=== PATIENT | female | born 1995 | race African-American/Black ===

== ENCOUNTER 2021-05-24 10:52 | Emergency (ER) | payer SELFPAY ==
[~2021-05-24] VITALS: Ht 152.4 cm; Wt 66.8 kg
[2021-05-24 12:30] LABS: BASO # 0.1 K/mm3 (0.0-0.2); BASO % 0.7 % (0.0-2.0); EOS # 0.1 K/mm3 (0.0-0.7); GRAN # 4.9 K/mm3 (1.4-6.5); GRAN % 71.8 % (42.2-75.2); HEMOGLOBIN 11.7 g/dl (12.5-16.0); LYMPH # 1.4 K/mm3 (1.2-3.4); LYMPH % 21.1 % (20.0-51.0); MEAN CELL VOLUME 87 fl (80.0-100.0); MEAN CORPUSCULAR HEMOGLOBIN 31 pg (27-31); MEAN CORPUSCULAR HGB CONC 36 g/dl (33.0-37.0); MEAN PLATELET VOLUME 10.4 fl (7.4-10.4); MONO # 0.4 K/mm3 (0.1-0.6); MONO % 5.3 % (1.7-9.3); PLATELET COUNT 213 K/mm3 (130-400); RED BLOOD COUNT 3.81 M/mm3 (4.10-5.30)
[2021-05-24 12:56] LABS: ALANINE AMINOTRANSFERASE 7 U/L (0-55); ALBUMIN 3.1 gm/dL (3.5-5.0); ALKALINE PHOSPHATASE 42 U/L (40-150); ANION GAP 12 mmol/L (7-16); AST,SGOT 14 U/L (5-34); BILIRUBIN,TOTAL 0.8 mg/dL (0.2-1.2); BLOOD UREA NITROGEN 10 mg/dL (7-19); CARBON DIOXIDE 17 mmol/L (22-29); CHLORIDE 105 mmol/L (98-107); CREATININE, serum 0.68 mg/dL (0.57-1.11); GLUCOSE 54 mg/dL (70-99); LIPASE < 10 U/L (8-78); POTASSIUM 3.5 mmol/L (3.5-4.5); SODIUM 134 mmol/L (136-145); TOTAL PROTEIN 6.3 gm/dL (6.2-8.1)
[2021-05-24 13:33] LABS: COLLECTION METHOD CLEAN CATCH
[2021-05-24 13:33] LABS: HCG,QUANTITATIVE 37195 mIU/mL
[2021-05-24 13:39] LABS: MUCOUS Present (NOT PRESENT); PH 5 (5-8); SQUAMOUS EPITHELIAL 0-2 /hpf (0-10); URINE APPEARANCE Hazy (CLEAR/HAZY); URINE BACTERIA Rare /hpf (NONE SEEN); URINE BILIRUBIN Negative (NEGATIVE); URINE BLOOD Negative (NEGATIVE); URINE COLOR Yellow (YELLOW); URINE GLUCOSE Negative (NEGATIVE); URINE KETONE 2+ (NEGATIVE); URINE LEUKOCYTE ESTERASE Trace (NEGATIVE); URINE NITRATE Negative (NEGATIVE); URINE PROTEIN(semi-quant) 1+ (NEGATIVE); URINE RBC 0-2 /hpf (0-2); URINE UROBILINOGEN Negative (NEGATIVE)
[2021-05-24 13:50] VITALS: BP 120/62; PULSE 78; TEMP 98
== END 2021-05-24 13:52 | disposition home or self-care (01) ==
LOC: COL.ER 10:52
PROVIDERS: Family Medicine; Nurse Practitioner
DX: O21.9 Vomiting of pregnancy, unspecified (principal); Z3A.17 17 weeks gestation of pregnancy
CPT/HCPCS: J2550; J7030

== ENCOUNTER 2021-06-13 15:48 | Inpatient (IN) | payer MEDICAID ==
[2021-06-13] VITALS (14 sets, daily range): BP systolic 109–138; BP diastolic 58–81; PULSE 67–881; TEMP 98.1
[~2021-06-13] VITALS: Ht 152.4 cm; Wt 68.2 kg
[2021-06-13 17:51] LABS: BASO # 0.1 K/mm3 (0.0-0.2); BASO % 0.5 % (0.0-2.0); EOS # 0.2 K/mm3 (0.0-0.7); EOS % 1.6 % (0.0-4.0); GRAN # 6.9 K/mm3 (1.4-6.5); GRAN % 71.6 % (42.2-75.2); HEMOGLOBIN 12.3 g/dl (12.5-16.0); LYMPH # 1.9 K/mm3 (1.2-3.4); LYMPH % 19.6 % (20.0-51.0); MEAN CELL VOLUME 90 fl (80.0-100.0); MEAN CORPUSCULAR HEMOGLOBIN 31 pg (27-31); MEAN CORPUSCULAR HGB CONC 35 g/dl (33.0-37.0); MEAN PLATELET VOLUME 11.7 fl (7.4-10.4); MONO # 0.6 K/mm3 (0.1-0.6); MONO % 6.4 % (1.7-9.3); PLATELET COUNT 180 K/mm3 (130-400); RED BLOOD COUNT 3.96 M/mm3 (4.10-5.30); REDCELL DISTRIBUTION WIDTH-CV 13.6 % (11.5-14.5)
[2021-06-13 17:53] LABS: HEMATOCRIT 35.6 % (37.0-47.0)
[2021-06-13 17:58] LABS: ALBUMIN 3.1 gm/dL (3.5-5.0); BILIRUBIN,TOTAL 0.6 mg/dL (0.2-1.2); CALCIUM 8.5 mg/dL (8.4-10.2); CREATININE, serum 0.64 mg/dL (0.57-1.11); POTASSIUM 3.6 mmol/L (3.5-4.5); TOTAL PROTEIN 6.4 gm/dL (6.2-8.1)
[2021-06-13 18:20] LABS: THYROID STIMULATING HORMONE 0.73 uIU/mL (0.350-4.940)
[2021-06-13 19:17] LABS: TRICYCLIC ANTIDEPRESS URINE NEGATIVE
[2021-06-14 00:30] VITALS: BP 128/75; PULSE 70; TEMP 99.3
[2021-06-14 06:45] VITALS: BP 123/67; PULSE 70; TEMP 98.8
[2021-06-14 08:54] LABS: HEMOGLOBIN 9.7 g/dl (12.5-16.0)
[2021-06-14] MEDS ORDERED: IBU600 MG PO (08:58)
== END 2021-06-14 10:40 | disposition home or self-care (01) | DRG 797 ==
LOC: LDRO 15:48 → LDR 15:57 → LDRO 16:46 → LDR 16:47
PROVIDERS: Obstetrics & Gynecology; ADMIT Obstetrics & Gynecology
PROC: 10E0XZZ Delivery of Products of Conception, External Approach (ICD-10-PCS; principal; 2021-06-13)
PROC: 10D17ZZ Extraction of Products of Conception, Retained, Via Natural or Artificial Opening (ICD-10-PCS; 2021-06-13)
PROC: 3E0P7VZ Introduction of Hormone into Female Reproductive, Via Natural or Artificial Opening (ICD-10-PCS; 2021-06-13)
DX: O02.1 Missed abortion (principal); O99.322 Drug use complicating pregnancy, second trimester; Z37.1 Single stillbirth; O72.0 Third-stage hemorrhage; F12.90 Cannabis use, unspecified, uncomplicated; O42.912 Preterm premature rupture of membranes, unspecified as to length of time between rupture and onset of labor, second trimester; Z3A.17 17 weeks gestation of pregnancy
CPT/HCPCS: J0696; J2405; J3010; J7120

== ENCOUNTER 2023-10-18 21:03 | Inpatient (IN) | payer MEDICAID ==
[~2023-10-18] VITALS: Ht 152.4 cm; Wt 66.8 kg
[~2023-10-18 21:03] MED LIST: IBU600 MG PO
[2023-10-18] MEDS ORDERED: NS 1,000 ML IV ONE (22:15)
[2023-10-18 22:26] LABS: BASO # 0.1 K/mm3 (0.0-0.2); BASO % 0.5 % (0.0-2.0); EOS # 0.2 K/mm3 (0.0-0.7); EOS % 1.6 % (0.0-4.0); GRAN # 7.2 K/mm3 (1.4-6.5); GRAN % 67.6 % (42.2-75.2); HEMOGLOBIN 11.4 g/dl (12.5-16.0); LYMPH # 2.5 K/mm3 (1.2-3.4); LYMPH % 23.5 % (20.0-51.0); MEAN CELL VOLUME 92 fl (80.0-100.0); MEAN CORPUSCULAR HEMOGLOBIN 32 pg (27-31); MEAN CORPUSCULAR HGB CONC 34 g/dl (33.0-37.0); MEAN PLATELET VOLUME 10.5 fl (7.4-10.4); MONO # 0.7 K/mm3 (0.1-0.6); MONO % 6.4 % (1.7-9.3); PLATELET COUNT 201 K/mm3 (130-400); RED BLOOD COUNT 3.61 M/mm3 (4.10-5.30); REDCELL DISTRIBUTION WIDTH-CV 12.9 % (11.5-14.5)
[2023-10-18 22:31] LABS: HEMATOCRIT 33.3 % (37.0-47.0)
[2023-10-18 22:48] LABS: ALBUMIN 2.9 g/dL (3.5-5.0); BILIRUBIN,TOTAL 0.2 mg/dL (0.2-1.2); CALCIUM 8.6 mg/dL (8.4-10.2); CREATININE, serum 0.64 mg/dL (0.57-1.11); POTASSIUM 3.6 mEq/L (3.5-4.5)
[2023-10-18 23:03] LABS: COLLECTION METHOD CLEAN CATCH
[2023-10-18 23:15] LABS: PH 6.5 (5.0-8.5); URINE APPEARANCE TURBID (CLEAR/HAZY); URINE BLOOD 3+ (NEGATIVE); URINE COLOR RED (YELLOW); URINE GLUCOSE NEGATIVE (NEGATIVE); URINE KETONE NEGATIVE (NEGATIVE); URINE NITRATE POSITIVE (NEGATIVE); URINE PROTEIN(semi-quant) 1+ (NEGATIVE)
[2023-10-18 23:44] LABS: MUCOUS PRESENT (NOT PRESENT); SQUAMOUS EPITHELIAL 0-2 /hpf (0-10); URINE CALCIUM OXALATE CRYSTAL PRESENT (NOT PRESENT); URINE RBC >50 /hpf (0-2)
[2023-10-19] VITALS (16 sets, daily range): BP systolic 105–137; BP diastolic 51–76; PULSE 71–93; TEMP 97.5–98.8
[2023-10-19] MEDS ORDERED: Magnesium Sulfate 8% 50 ML IV ONE ×2 (01:30→02:30)
[2023-10-19] MEDS ORDERED: Cefdinir 300 MG CAP PO ONE (01:30)
--- NOTE | 2023-10-19 01:30 | NUR ---
PT ARRIVED FROM ER ON GURNEY. PT TRANSFERED TO LABOR BED. PT IS HARSH RODRIGUEZ, . AB/1, MISCARRIAGE 1. PT PRESENTS FROM ER WITH C/O BLEEDING, CERVICAL SPECULUM VISUAL EVALUATION SHOWED CERVIX WAS DILATED 3 CM, BULGING MEMBRANES. DR LIU IS HERE AND THE PLAN OF CARE IS TO TRANSFER TO [facility] FOR A CERCLAGE. PT HAS AN IV IN RIGHT WRIST 18 G, WITH NS RUNNING. A 2ND IV WAS STARTED IN RIGHT WRIST 18G. ANCEF 1 GM WAS STARTED IN RIGHT WRIST IV SIGHT. IV FLUIDS WS CHANGED TO LR PER DO LIU. MAGNEDIUM 4 GM BOLUS WAS STARTED IN LEFT WRIST IV SITE ON PUMP. ATTEMPTED TO GET FHT'S WITH MONITOR BUT WAS NOT ABLE TO GET A GOOD STRIP. FHT'S WITH DOPPLER 140'S. 0145 BETAMETHASONE 12 MG IM WAS GIVEN IN LEFT THIGH BY CINDI CHI RN. MAG 2 GM MAINTENANCE STARTED VIA PUMP. 0152 DR LIU IN ROOM SVE 5/90/100, MEMBRANES BULGING, FHT'S 150 WITH DOPPLER. PT MOANING AND SAYING THE ABD PAIN IS GETTING WORSE, PT ROLLING BACK AND FORTH IN BED. DR LIU CALLED FOR EPIDURAL. [address] LIU SINCE WE NOT ABLE TO GET CTX'S STOPPED. 0230 GILBERT HAN CRNA HERE TO PLACE EPIDURAL. PT TO RIGHT SIDE LYING POSITION. 0245 EPIDURAL CATH IN TEST DOSE GIVEN. BP 133/76, P 80 133/69, P 81 129/75, P 82 134/74, 72 0300 BAUMANN CATH PLACED WITH CLEAR YELLOW URINE RETURNED. 0312 FHT'S 120'A WITH DOPPLER. 0318 AZITHROMYCIN 500 MG IVPB STARTED VIA PUMP. 0328 DR LIU HERE SVE COMPLETE ABD BULGING. 0333 FHT'S 122 0337 FLIGHT TEAM FROM [facility] HERE FOR DELIVERY OF BABY. 0342 FHT'S 127 WITH DOPPLER, PT'S TEMP 97.7 0353 NICU TEAM SET UP AND READY FOR BABY. PT IN STIRUPS, BAUMANN CATH REMOVED WITH [address] LIU AND THE NICU TEAM HERE. 0400 ATTEMPTED FHT'S NOT ABLE TO GET A GOOD READYING. U/S BROUGHT IN FHT'S STARTED AT 120'A THEN DECELED DOWN TO 60'S. 0402 C/S CALLED. ALL THE TEAM WAS NOTIFIED. 0404 BAUMANN CATH WAS REPLACED WITH CLEAR YELLOW URINE RETURNED. 0410 UNPLUGGING BED AND TRANSFERING PT TO OR. 0415 PT TRANSFERED TO OR VIA BED, TRANSFERED OVER TO OR BED. HIP ROLL WAS PLACED UNDER RIGHT HIP. GROUNDING PAD ON RIGHT THIGH, SCDS ON, LEGS STRAPS ON BILATERAL LEGS SECURED. WARM BLANKETS ON PT. 0420 TIME OUT DONE, SURGERY STARTED. 0425 DELIVERY OF FEMALE . BABY WAS PASSED OFF TO NICU WELDING MACHINE OPERATOR HELPER ARC. 0427 PLACENTA MANUALLY REMOVED. SEE OR DOCUMENTATION.
[2023-10-19] MEDS ORDERED: Betamethasone Acetate/Na Phos 6 MG/ML 5 ML MDV IM ONE (01:45)
[2023-10-19] MEDS ORDERED: LR 1,000 ML IV SCH (02:15)
[2023-10-19] MEDS ORDERED: LR & Oxytocin 500 ML IV SCH (02:15)
[2023-10-19] MEDS ORDERED: ROPivacaine PF 0.2% 200 ML IV ONE (02:21)
[2023-10-19] MEDS ORDERED: Magnesium Sulfate 4% 500 ML IV SCH (02:30)
[2023-10-19] MEDS ORDERED: ceFAZolin 1 G in Water For Injection,Sterile 10 ML IV ONE (03:00)
[2023-10-19] MEDS ORDERED: diphenhydrAMINE 50 MG/ML 1 ML VIAL IV PRN (03:15)
[2023-10-19] MEDS ORDERED: diphenhydrAMINE 25 MG CAP PO PRN (03:15)
[2023-10-19] MEDS ORDERED: ePHEDrine 50 MG/10 ML VIAL IV PRN (03:15)
[2023-10-19] MEDS ORDERED: Naloxone 0.4 MG/ML VIAL IV PRN ×2 (03:15→10:15)
[2023-10-19] MEDS ORDERED: Ondansetron 4 MG/2 ML VIAL IV PRN ×2 (03:15→10:15)
[2023-10-19] MEDS ORDERED: Ketorolac 30 MG/ML VIAL ONE (04:35)
[2023-10-19] MEDS ORDERED: Ondansetron 4 MG/2 ML VIAL ONE (04:35)
[2023-10-19] MEDS ORDERED: NS 10 ML IV ONE (04:35)
[2023-10-19] MEDS ORDERED: dexAMETHasone 10 MG/ML VIAL ONE (04:41)
[2023-10-19] MEDS ORDERED: EPINEPHrine 1 MG/1 ML Ampule ONE (04:42)
[2023-10-19] MEDS ORDERED: Azithromycin 500 MG in NS 250 ML IV ONE (05:15)
[2023-10-19] MEDS ORDERED: Chloroprocaine PF 3% (30 MG/ML) 20 ML VIAL ONE (05:23)
--- NOTE | 2023-10-19 05:45 | NUR ---
NICU DOCTOR FROM [facility] HERE TO SPEAK WITH PT AND FOB.
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
[2023-10-19 06:56] LABS: TRICYCLIC ANTIDEPRESS URINE NEGATIVE (NEGATIVE)
--- NOTE | 2023-10-19 07:05 | NUR ---
CARE OF PATIENT RECIEVED FROM JONAS LEWIS RN. PATIENT IN ROOM RESTING.
[2023-10-19] MEDS ORDERED: Measles/Mumps/Rubella Virus Vaccine Live w Diluent 0.5 ML VIAL SQ SCH (10:15)
[2023-10-19] MEDS ORDERED: LR 1,000 ML IV PRN (10:15)
[2023-10-19] MEDS ORDERED: oxyCODONE/Acetaminophen 5-325 MG TAB PO PRN (10:15)
[2023-10-19] MEDS ORDERED: Magnes Hydrox (MOM) 80 MG/ML 30 ML CUP PO PRN (10:15)
[2023-10-19] MEDS ORDERED: Loratadine 10 MG TAB PO PRN (10:15)
[2023-10-19] MEDS ORDERED: Ibuprofen 800 MG TAB PO SCH (16:01)
[2023-10-19] MEDS ORDERED: Sennosides/Docusate 8.6-50 MG TAB PO SCH (17:00)
[2023-10-19] MEDS ORDERED: PRENATAL TABLET PO (20:38)
[2023-10-19] MEDS ORDERED: traZODone 50 MG TAB PO PRN (21:00)
[2023-10-20 02:33] VITALS: BP 105/56; PULSE 80; TEMP 98
[2023-10-20 06:36] VITALS: BP 121/64; PULSE 77; TEMP 97.7
[2023-10-20] MEDS ORDERED: IBU800 M1 PO (08:56)
--- NOTE | 2023-10-20 09:51 | NUR ---
Initial visit attempt; Patient sleeping, Weave Room Supervisor left card offering congratulations and God's blessings for the of her daughter and information regarding the availability of Spiritual Care at our hospital.
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
--- NOTE | 2023-10-22 09:07 | NUR ---
supervisor shed workers receieved postive cord blood results for . FAITH made CPS report intake number [id number]. FAITH faxed results to CPS worker Melanie and informed her of this via call. FAITH spoke with NICU FAITH Calles and faxed her these results as well.
== END 2023-10-20 14:33 | disposition home or self-care (01) | DRG 788 ==
LOC: COL.ER 21:03 → LDR 10-19 01:25 → OB 10-19 01:25
PROVIDERS: Nurse Practitioner Family; Obstetrics & Gynecology; ADMIT Obstetrics & Gynecology
PROC: 10D00Z1 Extraction of Products of Conception, Low, Open Approach (ICD-10-PCS; principal; 2023-10-19)
DX: O76 Abnormality in fetal heart rate and rhythm complicating labor and delivery (principal); Z3A.23 23 weeks gestation of pregnancy; Z37.0 Single live birth
CPT/HCPCS: J0171; J0456; J0665; J0690; J0702; J1100; J1885; J2401; J2405; J2795; J3475; J7030; J7050; J7120

== ENCOUNTER 2023-11-29 14:44 | Emergency (ER) | payer MEDICAID ==
[~2023-11-29] VITALS: Ht 152.4 cm; Wt 65.9 kg
[~2023-11-29 14:44] MED LIST changes: +IBU800 M1 PO; +PRENATAL TABLET PO
[2023-11-29 14:47] VITALS: TEMP 98.3
[2023-11-29 15:22] LABS: BASO # 0.1 K/mm3 (0.0-0.2); BASO % 1.2 % (0.0-2.0); EOS # 0.2 K/mm3 (0.0-0.7); GRAN # 1.3 K/mm3 (1.4-6.5); GRAN % 30.4 % (42.2-75.2); HEMATOCRIT 37.7 % (37.0-47.0); HEMOGLOBIN 12.4 g/dl (12.5-16.0); LYMPH # 2.3 K/mm3 (1.2-3.4); LYMPH % 54.7 % (20.0-51.0); MEAN CELL VOLUME 91 fl (80.0-100.0); MEAN CORPUSCULAR HEMOGLOBIN 30 pg (27-31); MEAN CORPUSCULAR HGB CONC 33 g/dl (33.0-37.0); MEAN PLATELET VOLUME 10.8 fl (7.4-10.4); MONO # 0.4 K/mm3 (0.1-0.6); MONO % 9.5 % (1.7-9.3); PLATELET COUNT 204 K/mm3 (130-400); RED BLOOD COUNT 4.14 M/mm3 (4.10-5.30); REDCELL DISTRIBUTION WIDTH-CV 12.1 % (11.5-14.5)
[2023-11-29 15:38] LABS: ALANINE AMINOTRANSFERASE 12 U/L (0-55); ALBUMIN 3.7 g/dL (3.5-5.0); ALKALINE PHOSPHATASE 61 U/L (40-150); ANION GAP 9 mmol/L (7-16); AST,SGOT 18 U/L (5-34); BILIRUBIN,TOTAL 0.6 mg/dL (0.2-1.2); BLOOD UREA NITROGEN 14 mg/dL (7-19); CALCIUM 9.2 mg/dL (8.4-10.2); CHLORIDE 107 mEq/L (98-107); CREATININE, serum 0.85 mg/dL (0.57-1.11); GLUCOSE 89 mg/dL (70-99); MAGNESIUM 1.8 mg/dL (1.6-2.6); SODIUM 140 mEq/L (136-145); TOTAL PROTEIN 6.7 g/dl (6.2-8.1)
[2023-11-29 15:44] LABS: TROPONIN-I < 0.010 ng/mL (0.00-0.033)
[2023-11-29 16:15] LABS: COLLECTION METHOD CLEAN CATCH
[2023-11-29 16:29] LABS: URINE APPEARANCE TURBID (CLEAR/HAZY); URINE BLOOD 3+ (NEGATIVE); URINE COLOR RED (YELLOW); URINE GLUCOSE NEGATIVE (NEGATIVE); URINE KETONE NEGATIVE (NEGATIVE); URINE NITRATE NEGATIVE (NEGATIVE); URINE PROTEIN(semi-quant) 2+ (NEGATIVE); URINE UROBILINOGEN 0.2 E.U/dL (0.2-1.0)
[2023-11-29] MEDS ORDERED: Acetaminophen 500 MG TAB PO ONE (17:15)
[2023-11-29] MEDS ORDERED: Cephalexin 500 MG CAP PO ONE (17:45)
[2023-11-29] MEDS ORDERED: CEPHALEXIN500 M1 PO (17:46)
[2023-11-29 18:07] VITALS: BP 140/83; PULSE 63
== END 2023-11-29 18:07 | disposition home or self-care (01) ==
LOC: COL.ER 14:44
PROVIDERS: Emergency Medicine
DX: R06.02 Shortness of breath (principal); N39.0 Urinary tract infection, site not specified